=== PATIENT | female | born 1990 | race Caucasian/White ===

== ENCOUNTER 2017-03-24 16:34 | Emergency (ER) | payer MEDICAID, OTHER ==
[~2017-03-24] VITALS: Ht 165.1 cm; Wt 65.8 kg
[2017-03-24 16:35] VITALS: BP 125/93
--- NOTE | 2017-03-24 16:48 | NUR ---
PATIENT IS A 26 YO FEMALE BIB [facility] FOR PREBOOK, SHE IS AWAKE AND ALERT, ABLE TOAMBULATE, HX OF HTN ADHD AND ANXIETY BP ELEVATED ON ARRIVAL.
--- NOTE | 2017-03-24 16:52 | NUR ---
MD ALVAREZ AT BEDSIDE.
[2017-03-24] MEDS ORDERED: LORazepam 2 MG/ML VIAL IVP ONE ×2 (16:55→18:25)
[2017-03-24] MEDS ORDERED: NACL 0.9% 1,000 ML IV ONE (16:55)
--- NOTE | 2017-03-24 18:05 | NUR ---
IV NS STARTED @ 1705 AND END 1805
[2017-03-24 19:00] VITALS: BP 133/96
== END 2017-03-24 19:00 | disposition home or self-care (01) ==
LOC: MED 16:34
DX: Z00.01 Encounter for general adult medical examination with abnormal findings (principal); R03.0 Elevated blood-pressure reading, without diagnosis of hypertension; F90.9 Attention-deficit hyperactivity disorder, unspecified type
CPT/HCPCS: 96361; 96374; 96376; 99284; J2060; J7030

== ENCOUNTER 2018-10-27 23:42 | Emergency (ER) | payer OTHER ==
[~2018-10-27] VITALS: Ht 162.6 cm; Wt 81.6 kg
--- NOTE | 2018-10-27 23:42 | NUR ---
PT KRANTHI PALMA, PREBOOK. TAKEN TO CHAIR E
[2018-10-27 23:43] VITALS: BP 140/117
--- NOTE | 2018-10-27 23:45 | NUR ---
Dr. Sandoval evaluating patient
--- NOTE | 2018-10-27 23:45 | NUR ---
ASSUMED CARE OF PT AT THIS TIME. PT BIB [facility] FOR PREBOOK. PER PD, PT HAD ELEVATED BP/HR AND NEEDS MD CLEARANCE FOR BOOKING. PT C/O CHRONIC BODY ACHES. AAOX4 WITH EVEN AND STEADY GAIT; PATIENT STATES PAIN OF 10/10; VSS; PATIENT POSITIONED FOR COMFORT; ER MD MADE AWARE OF PT STATUS. WILL CONTINUE TO MONITOR.
[2018-10-27 23:50] VITALS: BP 140/117
--- NOTE | 2018-10-27 23:50 | NUR ---
PATIENT BIB [facility] [employer]. PATIENT EXAMINED BY DR. LONGO. PATIENT MEDICALLY CLEARED AND RELEASED IN CUSTODY IN STABLE CONDITION. ORIGINAL PRE-BOOK FORM GIVEN TO OFFICER #[id number].
== END 2018-10-27 23:50 ==
LOC: MED 23:42
DX: M79.10 Myalgia, unspecified site (principal); F17.210 Nicotine dependence, cigarettes, uncomplicated; Z02.89 Encounter for other administrative examinations
CPT/HCPCS: 99283

== ENCOUNTER 2019-11-07 02:45 | Emergency (ER) | payer OTHER ==
[~2019-11-07] VITALS: Ht 165.1 cm; Wt 77.1 kg
[2019-11-07 02:51] VITALS: BP 114/55
--- NOTE | 2019-11-07 02:55 | NUR ---
PATIENT BIB [facility] [employer]. PATIENT EXAMINED BY DR. KRAMER. PATIENT MEDICALLY CLEARED AND RELEASED IN CUSTODY IN STABLE CONDITION. ORIGINAL PRE-BOOK FORM GIVEN TO [facility] [employer] [facility]ER.
== END 2019-11-07 02:55 ==
LOC: MED 02:45
DX: R03.0 Elevated blood-pressure reading, without diagnosis of hypertension (principal); Z02.89 Encounter for other administrative examinations
CPT/HCPCS: 99283